=== PATIENT | male | born 1985 | race Caucasian/White ===

== ENCOUNTER 2018-03-16 16:37 | Emergency (ER) | payer MEDICARE ==
[2018-03-16] MEDS ORDERED: Zofran 4 MG/2 ML VIAL IV ONE (17:57)
[2018-03-16] MEDS ORDERED: TORAdol 30 mg Injection IV ONE (17:57)
[2018-03-16] MEDS ORDERED: BENADRYL 50 MG/ML IV ONE (17:58)
[2018-03-16] MEDS ORDERED: Sodium Chloride 0.9% 1000 ML 1,000 ML IV STA (17:59)
[2018-03-16] MEDS ORDERED: BENADRYL 50 MG/ML ONE (18:02)
[2018-03-16] MEDS ORDERED: Sodium Chloride 0.9% 1000 ML 1,000 ML ONE (18:02)
[2018-03-16] MEDS ORDERED: Zofran 4 MG/2 ML VIAL ONE (18:02)
[2018-03-16] MEDS ORDERED: TORAdol 30 mg Injection ONE (18:02)
--- NOTE | 2018-03-16 18:08 | ERPHSYRPT ---
<FERNANDO RENDON - Last Filed: 03/16/18 20:37> - History of Present Illness Source: other (mother) Exam Limitations: other (pt is mentally challenged) Patient Subjective Stated Complaint: headaches that are causing right side of his body to go numb Triage Nursing Assessment: pt is alert and orientedx3, speech is slightly gargled, but patient able to articulate nad answer questions, gait is steady, ambulates by self, skin warm dry and intact, lung sounds clear bilateral, bowel sounds x4, pupils perrla3 Timing/Duration: week(s) (1), intermittent Quality: throbbing Head Pain Location: frontal Severity of Pain-Max: severe Severity of Pain-Current: mild Recent Head Trauma: frequent headaches Modifying Factors: Improves With: other (none) Associated Symptoms: nausea/vomiting Previous symptoms: same symptoms as today Hx Tetanus, Diphtheria Vaccination/Date Given: Yes Hx Influenza Vaccination/Date Given: No Hx Pneumococcal Vaccination/Date Given: No Immunizations Up to Date: Yes <FRANCESCA TRONCOSO - Last Filed: 03/17/18 08:18> - History of Present Illness Time Seen by Provider: 03/16/18 17:44 Physician History: PT has been c/o headaches since last week according to his mother. He is mentally handicapped, but verbally responding, not lethargic or confused, he is at his usual mental functioning level. He has been treated with Migraine headaches, and he was seen in [facility] ED last week with this, but his headaches recurred. It started with left frontal headaches as usual, he vomited once today. He denies any pain now, he states, his head is "numb" now. (FRANCESCA TRONCOSO) Allergies/Adverse Reactions: No Known Drug Allergies Allergy (Verified 04/10/16 19:17) - Review of Systems Constitutional: No Symptoms Abdominal/Gastrointestinal: Nausea, Vomiting Neurological: Headache All Other Systems: Reviewed and Negative <FRANCESCA TRONCOSO - Last Filed: 03/17/18 08:18> - Past Medical History Pertinent Past Medical History: No Neurological History: No Pertinent History ENT History: Other Cardiac History: No Pertinent History Respiratory History: No Pertinent History Endocrine Medical History: No Pertinent History - Past Surgical History Past Surgical History: No - Social History Smoking Status: Never smoker Exposure to second hand smoke: Yes Drug Use: none Patient Lives Alone: No <FRANCESCA TRONCOSO - Last Filed: 03/17/18 08:18> - Physical Exam General Appearance: no apparent distress Eye Exam: PERRL/EOMI, eyes nml inspection Ears, Nose, Throat Exam: normal ENT inspection, pharynx normal, moist mucous membranes Neck Exam: normal inspection, non-tender, supple, No mass, No carotid bruit, No JVD Respiratory Exam: normal breath sounds, lungs clear, airway intact, No chest tenderness Cardiovascular Exam: regular rate/rhythm, normal heart sounds, normal peripheral pulses, No murmur Gastrointestinal/Abdominal Exam: soft, normal bowel sounds, No tenderness, No distention, No mass Back Exam: normal inspection, No CVA tenderness Extremity Exam: normal inspection Mental Status Exam: alert, oriented x 3, 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: normal speech, PERRL Motor/Sensory Exam: no motor deficit DTR Exam: knee (R): 3+, knee (L): 3+ Skin Exam: normal color, warm, dry, No rash Lymphatic Exam: No adenopathy SpO2 Interpretation: normal SpO2: 95 Oxygen Delivery: Room Air <FRANCESCA TRONCOSO - Last Filed: 03/17/18 08:18> - Nursing Vital Signs Nursing Vital Signs: Initial Vital Signs Temperature 97.9 F 03/16/18 16:38 Pulse Rate 78 03/16/18 16:38 Respiratory Rate 16 03/16/18 16:38 Blood Pressure 130/88 03/16/18 16:38 O2 Sat by Pulse Oximetry 96 03/16/18 16:38 Pain Scale Pain Intensity 0 - CT Exams Head CT Interpretation: Negative, Tele-radiologist Report (per Dr Infante) <FERNANDO RENDON - Last Filed: 03/16/18 20:37> - Course Nursing assessment & vital signs reviewed: Yes EKG Interpreted by Me: RATE (62/min), NORMAL AXIS, NORMAL INTERVALS, NORMAL ST-T <FRANCESCA TRONCOSO - Last Filed: 03/17/18 08:18> Ordered Tests: Active Orders 24 hr Category Date Time Status Clean Catch Urine Specimen STAT Care 03/16/18 19:55 Active IV Insertion STAT Care 03/16/18 18:00 Active Oxygen-ED Only NASAL CANNULA 2 lpm Care 03/16/18 17:57 Active HEAD WITHOUT CONTRAST [CT] Stat Exams 03/16/18 17:57 Taken CBC W DIFF Stat Lab 03/16/18 17:33 Completed CMP Stat Lab 03/16/18 17:33 Completed Erythrocyte Sedimentation Rate Stat Lab 03/16/18 17:33 Completed PROTIME WITH INR Stat Lab 03/16/18 17:33 Completed UA W/RFX UR CULTURE Stat Lab 03/16/18 20:00 Completed Urine Triage Profile Stat Lab 03/16/18 20:00 Completed Medication Summary Discontinued Medications Generic Name Dose Route Start Last Admin Trade Name Freq PRN Reason Stop Dose Admin Diphenhydramine HCl 25 mg 03/16/18 17:58 03/16/18 18:06 Benadryl 50 Mg/Ml IV 03/16/18 17:59 25 mg STAT ONE Administration Diphenhydramine HCl Confirm 03/16/18 18:02 Benadryl 50 Mg/Ml Administered 03/16/18 18:03 Dose 50 mg .ROUTE .STK-MED ONE Sodium Chloride 1,000 mls @ 999 mls/hr 03/16/18 17:59 03/16/18 18:06 Sodium Chloride 0.9% 1000 Ml IV 03/16/18 18:59 999 mls/hr .Q1H1M STA Administration Sodium Chloride Confirm 03/16/18 18:02 Sodium Chloride 0.9% 1000 Ml Administered 03/16/18 18:03 Dose 1,000 mls @ ud .ROUTE .STK-MED ONE Ketorolac Tromethamine 30 mg 03/16/18 17:57 03/16/18 18:06 Toradol 30 Mg Injection IV 03/16/18 17:58 30 mg STAT ONE Administration Ketorolac Tromethamine Confirm 03/16/18 18:02 Toradol 30 Mg Injection Administered 03/16/18 18:03 Dose 30 mg .ROUTE .STK-MED ONE Ondansetron HCl 4 mg 03/16/18 17:57 03/16/18 18:06 Zofran 4 Mg/2 Ml Vial IV 03/16/18 17:58 4 mg STAT ONE Administration Ondansetron HCl Confirm 03/16/18 18:02 Zofran 4 Mg/2 Ml Vial Administered 03/16/18 18:03 Dose 4 mg .ROUTE .STK-MED ONE Promethazine HCl 25 mg 03/16/18 20:40 03/16/18 20:49 Phenergan 25 Mg PO 03/16/18 20:41 25 mg STAT ONE Administration Promethazine HCl Confirm 03/16/18 20:44 Phenergan 25 Mg Administered 03/16/18 20:45 Dose 25 mg .ROUTE .STK-MED ONE Lab/Rad Data: Laboratory Result Diagrams 03/16/18 17:33 03/16/18 17:33 Laboratory Results 03/16/18 03/16/18 03/16/18 Range/Units 20:00 20:00 17:33 WBC (4.0-10.5) K/mm3 RBC (4.1-5.6) M/mm3 Hgb (12.5-18.0) gm/dl Hct (42-50) % MCV (78-100) fl MCH (26-32) pg MCHC (32-36) g/dl RDW (11.5-14.0) % Plt Count (150-450) K/mm3 MPV (6-9.5) fl Gran % (36.0-66.0) % Eos # (Auto) (0-0.5) Absolute Lymphs (auto) (1.0-4.6) Absolute Monos (auto) (0.0-1.3) Lymphocytes % (24.0-44.0) % Monocytes % (0.0-12.0) % Eosinophils % (0.00-5.0) % Basophils % (0.0-0.4) % Absolute Granulocytes (1.4-6.9) Basophils # (0-0.4) ESR (0-15) mm/hr PT 12.7 (8.83-12.87) SECONDS INR 1.14 (0.8-3.0) Sodium (137-145) mmol/L Potassium (3.5-5.1) mmol/L Chloride (98-107) mmol/L Carbon Dioxide (22-30) mmol/L Anion Gap (5-15) MEQ/L BUN (9-20) mg/dL Creatinine (0.66-1.25) mg/dL Estimated GFR ML/MIN Glucose (74-106) mg/dL Calcium (8.4-10.2) mg/dL Total Bilirubin (0.2-1.3) mg/dL AST (17-59) U/L ALT (0-50) U/L Alkaline Phosphatase (38-126) U/L Serum Total Protein (6.3-8.2) g/dL Albumin (3.5-5.0) g/dL Ur Collection Type CCMS Urine Color YELLOW (YELLOW) Urine Appearance CLEAR (CLEAR) Urine pH 5.0 (5-6) Ur Specific [place] 1.020 (1.005-1.025) Urine Protein NEGATIVE (Negative) Urine Ketones SMALL (NEGATIVE) Urine Blood NEGATIVE (0-5) Attila/ul Urine Nitrite NEGATIVE (NEGATIVE) Urine Bilirubin NEGATIVE (NEGATIVE) Urine Urobilinogen NORMAL (0-1) mg/dL Ur Leukocyte Esterase NEGATIVE (NEGATIVE) Urine Culture Reflexed NO (NO) Urine Glucose NEGATIVE (NEGATIVE) mg/dL Urine Opiates Level NEGATIVE (NEGATIVE) Ur Methadone NEGATIVE (NEGATIVE) Urine Barbiturates NEGATIVE (NEGATIVE) Ur Phencyclidine (PCP) NEGATIVE (NEGATIVE) Urine Amphetamine NEGATIVE (NEGATIVE) U Benzodiazepine Level NEGATIVE (NEGATIVE) Urine Cocaine NEGATIVE (NEGATIVE) Urine Marijuana (THC) NEGATIVE (NEGATIVE) Slides for Path Review Specimen Received [id number]/16/18 03/16/18 Range/Units 17:33 17:33 WBC 12.3 H (4.0-10.5) K/mm3 RBC 5.38 (4.1-5.6) M/mm3 Hgb 16.5 (12.5-18.0) gm/dl Hct 45.7 (42-50) % MCV 84.9 (78-100) fl MCH 30.7 (26-32) pg MCHC 36.1 H (32-36) g/dl RDW 12.2 (11.5-14.0) % Plt Count 271 (150-450) K/mm3 MPV 12.5 H (6-9.5) fl Gran % 75.7 H (36.0-66.0) % Eos # (Auto) 0.11 (0-0.5) Absolute Lymphs (auto) 2.16 (1.0-4.6) Absolute Monos (auto) 0.69 (0.0-1.3) Lymphocytes % 17.6 L (24.0-44.0) % Monocytes % 5.6 (0.0-12.0) % Eosinophils % 0.9 (0.00-5.0) % Basophils % 0.2 (0.0-0.4) % Absolute Granulocytes 9.28 H (1.4-6.9) Basophils # 0.02 (0-0.4) ESR 2 (0-15) mm/hr PT (8.83-12.87) SECONDS INR (0.8-3.0) Sodium 143 (137-145) mmol/L Potassium 3.9 (3.5-5.1) mmol/L Chloride 102 (98-107) mmol/L Carbon Dioxide 27 (22-30) mmol/L Anion Gap 16.9 H (5-15) MEQ/L BUN 19 (9-20) mg/dL Creatinine 0.96 (0.66-1.25) mg/dL Estimated GFR > 60.0 ML/MIN Glucose 103 (74-106) mg/dL Calcium 10.0 (8.4-10.2) mg/dL Total Bilirubin 2.10 H (0.2-1.3) mg/dL AST 23 (17-59) U/L ALT 28 (0-50) U/L Alkaline Phosphatase 81 (38-126) U/L Serum Total Protein 8.6 H (6.3-8.2) g/dL Albumin 5.0 (3.5-5.0) g/dL Ur Collection Type Urine Color (YELLOW) Urine Appearance (CLEAR) Urine pH (5-6) Ur Specific [place] (1.005-1.025) Urine Protein (Negative) Urine Ketones (NEGATIVE) Urine Blood (0-5) Attila/ul Urine Nitrite (NEGATIVE) Urine Bilirubin (NEGATIVE) Urine Urobilinogen (0-1) mg/dL Ur Leukocyte Esterase (NEGATIVE) Urine Culture Reflexed (NO) Urine Glucose (NEGATIVE) mg/dL Urine Opiates Level (NEGATIVE) Ur Methadone (NEGATIVE) Urine Barbiturates (NEGATIVE) Ur Phencyclidine (PCP) (NEGATIVE) Urine Amphetamine (NEGATIVE) U Benzodiazepine Level (NEGATIVE) Urine Cocaine (NEGATIVE) Urine Marijuana (THC) (NEGATIVE) Slides for Path Review YES Specimen Received - Progress Progress: improved Air Movement: good Blood Culture(s) Obtained: No Antibiotics given: No Counseled pt/family regarding: lab results, diagnosis, need for follow-up, rad results <FERNANDO RENDON - Last Filed: 03/16/18 20:37> <FRANCESCA TRONCOSO - Last Filed: 03/17/18 08:18> - Progress Progress Note: 03/16/18 19:25 Pt care discussed and care accepted for DR Troncoso at 19:00. (FERNANDO RENDON) - Departure Time of Disposition: 20:38 Departure Disposition: Home Critical Care Time: No <FERNANDO RENDON - Last Filed: 03/16/18 20:37> <FRANCESCA TRONCOSO - Last Filed: 03/17/18 08:18> - Departure Clinical Impression: Numbness Headache Qualifiers: Headache type: unspecified Headache chronicity pattern: unspecified pattern Intractability: not intractable Qualified Code(s): R51 - Headache Condition: Stable Referrals: JOCELYN ARAYA MD [Primary Care Provider] - Additional Instructions: You had a headache with nausea and intermittent numbness on your left side. The headache has resolved. The numbness has become significantly less with only numbness now on the left eyebrow. You were given Toradol 30 mg, Benadryl 25 mg, Zofran 4 mg, and fluids by IV in the ER. Take Phenergan 25 mg every 8 hours as needed for nausea. Follow-up with Dr. karen bhatti tomorrow if possible. Otherwise keep your scheduled neurology appointment on April 03. Prescriptions: Promethazine HCl 25 mg [Phenergan 25 mg] 25 mg PO Q8H PRN PRN #12 tablet PRN Reason: Nausea
[2018-03-16 18:14] LABS: BASOPHIL % 0.2 % (0.0-0.4); Basophil (Absolute #) 0.02 (0-0.4); Eosinophil % 0.9 % (0.00-5.0); Eosinophil (Absolute #) 0.11 (0-0.5); Granulocyte Absolute (ANC) 9.28 (1.4-6.9); Granulocytes % 75.7 % (36.0-66.0); Hematocrit 45.7 % (42-50); Hemoglobin 16.5 gm/dl (12.5-18.0); Lymphocyte (Absolute #) 2.16 (1.0-4.6); Lymphocytes % 17.6 % (24.0-44.0); Mean Cell Volume 84.9 fl (78-100); Mean Corpuscular Hemoglobin 30.7 pg (26-32); Mean Corpuscular Hgb Concent. 36.1 g/dl (32-36); Mean Platelet Volume 12.5 fl (6-9.5); Monocyte (Absolute #) 0.69 (0.0-1.3); Monocytes % 5.6 % (0.0-12.0); Platelet Count 271 K/mm3 (150-450); Red Blood Count 5.38 M/mm3 (4.1-5.6); Red Cell Distribution Width 12.2 % (11.5-14.0); White Blood Count 12.3 K/mm3 (4.0-10.5)
[2018-03-16 18:29] LABS: INR 1.14 (0.8-3.0)
[2018-03-16 18:34] LABS: ALKALINE PHOSPHATASE 81 U/L (38-126); ANION GAP 16.9 MEQ/L (5-15); BLOOD UREA NITROGEN 19 mg/dL (9-20); CHLORIDE 102 mmol/L (98-107); Carbon Dioxide 27 mmol/L (22-30); Creatinine 1 0.96 mg/dL (0.66-1.25); Glucose 103 mg/dL (74-106); Potassium 3.9 mmol/L (3.5-5.1); SGOT/AST 23 U/L (17-59); SGPT/ALT 28 U/L (0-50); SODIUM 143 mmol/L (137-145); Total Protein 8.6 g/dL (6.3-8.2)
[2018-03-16 19:14] LABS: Erythrocyte Sedimentation Rate 2 mm/hr (0-15)
[2018-03-16 20:08] LABS: Appearance CLEAR (CLEAR); Bilirubin NEGATIVE (NEGATIVE); Blood NEGATIVE Ery/ul (0-5); Glucose NEGATIVE (NEGATIVE); Ketones SMALL (NEGATIVE); Leukocyte Esterase NEGATIVE (NEGATIVE); Nitrite NEGATIVE (NEGATIVE); Protein,Urine Dip NEGATIVE (Negative); Urobilinogen NORMAL mg/dL (0-1)
[2018-03-16 20:20] LABS: Slide Review 1 YES
[2018-03-16 20:20] LABS: Barbiturate,Urine NEGATIVE (NEGATIVE); Benzodiazepine,Urine NEGATIVE (NEGATIVE); Cocaine,Urine NEGATIVE (NEGATIVE); Methadone,Urine NEGATIVE (NEGATIVE); Opiate,Urine NEGATIVE (NEGATIVE); PCP,Urine NEGATIVE (NEGATIVE); THC,Urine NEGATIVE (NEGATIVE)
[2018-03-16 20:23] LABS: Amphetamine,Urine NEGATIVE (NEGATIVE)
[2018-03-16] MEDS ORDERED: PHENERGAN 25 MG PO ONE (20:40)
[2018-03-16] MEDS ORDERED: PHENERGAN 25 MG ONE (20:44)
[2018-03-16 21:01] VITALS: BP 136/87; PULSE 71
[2018-03-17 08:18] VITALS: O2SAT 95
--- NOTE | 2018-03-17 08:42 | XRAY ---
Indication: Headache. Left frontal numbness. Multiple contiguous axial images obtained through the head without contrast. Comparison: None Normal appearing brain parenchyma, ventricles, and bony calvarium. Visualized paranasal sinuses and mastoid air cells are clear. Impression: Normal CT head without contrast exam. Comment: Preliminary interpretation was made by [facility]. No discrepancy. CTDI 66.81
== END 2018-03-16 21:03 | disposition home or self-care (01) ==
LOC: ED 16:37
DX: R51 Headache (principal); R20.0 Anesthesia of skin; R11.2 Nausea with vomiting, unspecified
CPT/HCPCS: 36000; 36415; 70450; 80053; 80307; 81002; 85025; 85610; 85652; 96360; 96374; 96375; 99284; J1200; J1885; J2405; A9270-GY